=== PATIENT | female | born 1965 | race Caucasian/White ===

== ENCOUNTER 2021-02-28 08:20 | Outpatient (REF) | payer BC, SELFPAY ==
[2021-02-28 13:58] LABS: H Pylori Breath Test Negative (Negative)
== END 2021-02-28 08:21 | disposition home or self-care (01) ==
LOC: HO.LNP 08:20
PROVIDERS: PCP Family Medicine; Visit Provider Physician Assistant
DX: Z01.818 Encounter for other preprocedural examination (principal); K43.9 Ventral hernia without obstruction or gangrene; E66.01 Morbid (severe) obesity due to excess calories; E03.9 Hypothyroidism, unspecified; E11.9 Type 2 diabetes mellitus without complications; Z98.84 Bariatric surgery status
CPT/HCPCS: 83013

== ENCOUNTER → 2021-03-25 08:14 | Outpatient (BNVA) | payer BC, SELFPAY | PROVIDERS: PCP Family Medicine; Visit Provider Physician Assistant ==

== ENCOUNTER 2021-03-31 08:05 | Outpatient (REF) | payer BC, SELFPAY ==
--- NOTE | ~2021-03-31 | FL_ITS ---
EXAMINATION: XR GI SERIES CLINICAL INFORMATION: Obesity. Preop evaluation. COMPARISON: None. TECHNIQUE: Routine upper GI air-contrast study was performed. FINDINGS: Following oral administration of thick barium and effervescent granules in upright view, there is normal propagation of bolus from the oral cavity through the pharynx and esophagus and into the stomach without any evidence of obstruction, narrowing or stricture. On placing patient supine and prone lying, the course, caliber and peristalsis of the stomach are normal. There is a gastric lap-band visualized in the fundus of the stomach in good position. The GE junction is widely patent. The stomach is normal caliber with a small paraesophageal hernia suspected. No gastroesophageal reflux. The mucosal pattern of the esophagus, stomach and the duodenum is normal. On subsequent and delayed images during fluoroscopy, it was felt that the gastric band was ruptured and shifted to the midline. Scrutinizing the images more carefully and more so on the initial images, the band is in the correct position in the fundus of the stomach with a wide gastr0-esophageal lumen. FLUOROSCOPY TIME: 3.0 minutes DOSE AREA PRODUCT: 51.282 uGy-m2 (microgray-meter squared) FL/FL upper GI series IMPRESSION: The gastric band is in correct position in the fundus of the stomach; however, the lumen is widely open. There is a paraesophageal small hiatal hernia.
--- NOTE | ~2021-03-31 | XR_ITS ---
EXAMINATION: XR CHEST CLINICAL INFORMATION: Bariatric surgery status COMPARISON: None TECHNIQUE: 2 views of the chest were obtained. FINDINGS: No significant abnormality is noted involving the heart, lungs, mediastinum, bony thorax or soft tissues. XR/XR chest 2V IMPRESSION: Unremarkable chest examination.
--- NOTE | ~2021-03-31 | US_ITS ---
EXAMINATION: US COMPLETE ABDOMEN WITH LIVER ELASTOGRAPHY CLINICAL INFORMATION: Bariatric surgery status. Obesity. COMPARISON: None. TECHNIQUE: Real-time imaging of the abdominal viscera. Noninvasive ultrasound liver fibrosis assessment is performed using Angelito ElastPQ point quantification shear wave elastography (2D-SWE) with a C5-2 MHz transducer. Multiple elastography samples are obtained. FINDINGS: PANCREAS: Normal. ABDOMINAL AORTA: The proximal, middle, and distal aortic segments are normal in caliber. INFERIOR VENA CAVA: Visualized portions are normal. LIVER: Liver contour is normal. Liver echotexture is slightly increased. The liver is slightly enlarged. No focal lesion or intrahepatic biliary duct dilatation. There is a linear echogenic density adjacent to the left lobe of the liver likely representing patient's gastric lap band. The right lobe measures 21 cm in length. The left lobe measures 11 cm in length. Portal flow is normal/hepatopedal Shear wave liver elastography median stiffness is 1.6 m/s (reference: normal median stiffness is 1.3 m/s or less). IQR/median stiffness to assess sampling precision is 0.24 (reference: good quality data set is IQR/median stiffness of 0.15 or less). GALLBLADDER: Gallbladder is normal in size. There are several small echogenic densities adjacent to the gallbladder wall. These do not move or shadow. The largest measures 3 x 8 mm. This may represent small gallstones, echogenic bile or less likely a polyp. The gallbladder wall does not appear thickened. COMMON BILE DUCT: Normal in caliber measuring 0.2 cm in diameter. RIGHT KIDNEY: Normal. No hydronephrosis. No renal calculi or focal parenchymal lesions. The kidney measures 11.5 cm in maximum dimension. LEFT KIDNEY: Normal. No hydronephrosis. No renal calculi or focal parenchymal lesions. The kidney measures 11 cm in maximum dimension. SPLEEN: Normal. The spleen measures 10.8 cm in maximum dimension. FREE FLUID: None. US/US abdomen comp w elastography IMPRESSION: 1. Impression: Enlarged echogenic liver probably representing fatty infiltration. Small echogenic densities adjacent to the gallbladder wall questionable for sludge or small adherent stones and less likely gallbladder wall polyp(s). 2. Liver elastography: Limited due to sampling error. REFERENCE: Society of Radiologists in Ultrasound Liver Stiffness Thresholds (2020): LIVER STIFFNESS THRESHOLDS: *Liver Stiffness equal or less than 1.3 m/s: High probability of being normal. *Liver Stiffness less than 1.7 m/s: In the absence of other known clinical signs, rules out compensated advanced chronic liver disease. *Liver Stiffness 1.7-2.1 m/s: Suggestive of compensated advanced chronic liver disease but need further test for confirmation. *Liver Stiffness over 2.1 m/s: Rules in compensated advanced chronic liver disease. *Liver Stiffness over 2.4 m/s: Suggestive of clinically significant portal hypertension. QUALITY OF DATA SET: *IQR/Median value equal or less than 0.15 implies a quality data set. *IQR/Median value over 0.15 implies a poor quality data set. SIGNIFICANT CHANGE FROM PRIOR EXAM: Significant change if liver stiffness measurement is 10% or greater from prior exam. OTHER CONSIDERATIONS: The stage of liver fibrosis may be overestimated in the setting of acute hepatitis, liver inflammation, elevated liver function tests, hepatic vascular congestion, obstructive cholestasis, non-fasting state, and infiltrative diseases such as amyloidosis and lymphoma. In some patients with NAFLD, the liver stiffness thresholds for compensated advanced chronic liver disease may be lower. In causes other than viral hepatitis and NAFLD, liver stiffness thresholds are not well established.
== END 2021-03-31 08:06 | disposition home or self-care (01) ==
LOC: HO.US 08:05
PROVIDERS: PCP Family Medicine; Visit Provider Physician Assistant
DX: Z01.818 Encounter for other preprocedural examination (principal); E66.01 Morbid (severe) obesity due to excess calories; E11.9 Type 2 diabetes mellitus without complications; Z98.84 Bariatric surgery status
CPT/HCPCS: 71046; 74240; 76705; 76981

== ENCOUNTER → 2021-04-08 08:24 | Outpatient (BNVA) | payer BC, SELFPAY | PROVIDERS: PCP Family Medicine; Visit Provider Dietitian, Registered | DX: E66.9 Obesity, unspecified (principal); Z68.43 Body mass index [BMI] 50.0-59.9, adult | CPT/HCPCS: 97802 ==

== ENCOUNTER → 2021-04-22 15:45 | Outpatient (BNVA) | payer BC, SELFPAY | PROVIDERS: PCP Family Medicine; Visit Provider Physician Assistant ==

== ENCOUNTER → 2021-05-27 15:20 | Outpatient (REF) | payer BC, SELFPAY ==
--- NOTE | 2021-05-27 15:28 | ECG_ITS ---
Test Reason : PREOP, OBESITY Blood Pressure : / mmHG Vent. Rate : 092 BPM Atrial Rate : 092 BPM P-R Int : 144 ms QRS Dur : 082 ms QT Int : 362 ms P-R-T Axes : 063 -03 049 degrees QTc Int : 447 ms Normal sinus rhythm Normal ECG No previous ECGs available Referred By: Shaunna Slade Electronically Signed By:MIKE SHIPMAN MD
== END ==
LOC: HO.CARD 15:20
PROVIDERS: PCP Family Medicine; Visit Provider Physician Assistant
DX: Z01.818 Encounter for other preprocedural examination (principal); E66.01 Morbid (severe) obesity due to excess calories; K43.9 Ventral hernia without obstruction or gangrene; E11.9 Type 2 diabetes mellitus without complications; Z98.84 Bariatric surgery status
CPT/HCPCS: 93005

== ENCOUNTER → 2021-06-16 15:57 | Outpatient (BNVA) | payer BC, SELFPAY | PROVIDERS: PCP Family Medicine; Visit Provider Physician Assistant | DX: Z13.89 Encounter for screening for other disorder (principal) ==

== ENCOUNTER → 2021-07-15 15:00 | Outpatient (BNVA) | payer BC, SELFPAY | PROVIDERS: PCP Family Medicine; Visit Provider Physician Assistant | DX: E66.01 Morbid (severe) obesity due to excess calories (principal) ==

== ENCOUNTER 2021-08-11 08:03 | Day surgery (SDC) | payer BC, SELFPAY ==
--- NOTE | 2021-08-06 09:56 | MHC.SHP ---
Pre-Procedural Eval Section A Date of Service: 08/06/21 The patient is an INPATIENT: No The History & Physical has been completed within 30 days and I have reviewed it.: Yes Section B Chief Complaint: bariactric status Relevant Family History (Specify if Yes): No Relevant Social History: None Present Medications: None Medical History: No relevant PMH History of Previous Operations: Relevant previous surgery/procedure and date(s) (Lap gastric band) Allergies: Allergies Allergy/AdvReac Type Severity Reaction Status Date / Time Sulfa (Sulfonamide Allergy Severe HIVE Verified 08/03/21 10:17 Antibiotics) Penicillins Allergy Mild HIVES Verified 08/03/21 10:17 Review of Systems Sugical H&P ROS: Negative: Constitution, Cardiovascular, Respiratory, Neurological, Psychiatric, Hem-Onc, Allergic/Immunologic, Gastrointestinal, Genitourinary, Musculoskeletal, Integumentary, Endocrine and Eyes/Ears/Nose/Throat Exam Surgical H&P Exam: Normal: HEENT, Normal: Heart, Normal: Lungs, Normal: Extremities, Normal: Abdomen, Normal: Skin and Normal: Neurological Plan Diagnosis/Plan: Unchanged (EGD to assess lap band erosion and esophagitis. Risks of bleeding and perforation were discussed) I have reviewed the history and physical and performed a pertinent physical examination on my patient. No changes have occurred unless specified.
--- NOTE | 2021-08-10 10:14 | P.CONAN_ITS ---
Documented by User: Anamaria Dickson NP 08/10/21 10:15 HPI - Anesthesia Eval Consult details Narrative: 56yo F for Upper Endoscopy PMF Active Problems Active Problems: All Active Problems (Updated 08/10/21 @ 09:52 by Kimberlee Laureano RN) Morbid obesity (Acute) Pre-op evaluation (Acute) Hypothyroid (Acute) History of adjustable gastric banding (Acute) Diabetes mellitus (Acute) Ventral hernia (Acute) Sleep apnea with use of continuous positive airway pressure (CPAP) (Acute) Past Medical History Medical History Diabetes mellitus Hypothyroid Morbid obesity Sleep apnea with use of continuous positive airway pressure (CPAP) Ventral hernia Family History Family History Mother Diabetes Father Dementia Sister No problems noted. Son No problems noted. Son Heart problem History of asthma Surgical History Surgical History History of adjustable gastric banding Hx of cervical polypectomy Hx of colonoscopy Hx of laparoscopic gastric banding Social History Social History Alcohol intake: current Alcohol intake frequency: holidays/special occasions only Patient Tobacco Use Status: Never used Tobacco Meds Allergies Allergy/AdvReac Type Severity Reaction Status Date / Time Sulfa (Sulfonamide Allergy Severe HIVE Verified 08/03/21 10:17 Antibiotics) Penicillins Allergy Mild HIVES Verified 08/03/21 10:17 Home Medications Medication Instructions Recorded Confirmed Last Taken Type bupropion HCl 150 mg 24 hr tablet, 150 mg PO QAM 02/28/21 08/03/21 Unknown History extended release bupropion HCl 300 mg 24 hr tablet, 300 mg PO DAILY 02/28/21 08/03/21 Unknown History extended release buspirone 30 mg tablet 30 mg PO BID 02/28/21 08/03/21 Unknown History desvenlafaxine succinate 100 mg 100 mg PO DAILY 02/28/21 08/03/21 Unknown History tablet,extended release 24 hr levothyroxine 50 mcg tablet 50 mcg PO QAM 02/28/21 08/03/21 Unknown History (Euthyrox) ibuprofen 200 mg tablet (Motrin IB) 200 mg PO Q6H PRN 08/03/21 08/03/21 Unknown History Exam Exam Date and Time: August 10, 2021 1014 Assessment and Plan Assessment Anesthesia Assessment: Chart Reviewed Documented by User: Zane Hylton MD 08/11/21 16:58 [facility] Past Medical History Medical History Diabetes mellitus Hypothyroid Morbid obesity Sleep apnea with use of continuous positive airway pressure (CPAP) Ventral hernia Family History Family History Mother Diabetes Father Dementia Sister No problems noted. Son No problems noted. Son Heart problem History of asthma Family history of problems with anesthesia: No Surgical History Surgical History History of adjustable gastric banding Hx of cervical polypectomy Hx of colonoscopy Hx of laparoscopic gastric banding History of Problems with Anesthesia: No Social History Social History Alcohol intake: current Alcohol intake frequency: holidays/special occasions only Patient Tobacco Use Status: Never used Tobacco Meds Allergies Allergy/AdvReac Type Severity Reaction Status Date / Time Sulfa (Sulfonamide Allergy Severe HIVE Verified 08/03/21 10:17 Antibiotics) Penicillins Allergy Mild HIVES Verified 08/03/21 10:17 Home Medications Medication Instructions Recorded Confirmed Last Taken Type bupropion HCl 150 mg 24 hr tablet, 150 mg PO QAM 02/28/21 08/03/21 Unknown History extended release bupropion HCl 300 mg 24 hr tablet, 300 mg PO DAILY 02/28/21 08/03/21 Unknown History extended release buspirone 30 mg tablet 30 mg PO BID 02/28/21 08/03/21 Unknown History desvenlafaxine succinate 100 mg 100 mg PO DAILY 02/28/21 08/03/21 Unknown History tablet,extended release 24 hr levothyroxine 50 mcg tablet 50 mcg PO QAM 02/28/21 08/03/21 Unknown History (Euthyrox) ibuprofen 200 mg tablet (Motrin IB) 200 mg PO Q6H PRN 08/03/21 08/03/21 Unknown History Exam Airway Mallampati Class: IV TM Dist: >3cm Neck ROM: Full Denture: Upper Loose/Missing/Broken Teeth: Yes (Poor dentition ) Heart: S1,S2 Lungs: b/l breath sounds Assessment and Plan Final Anesthetic Review Family History of Problems with Anesthesia: No History of Problems with Anesthesia: No NPO: Yes ASA Class: III Final Preanesthetic Review: Meds/Allgs Chart Reviewed, Consent Obtained/Reviewed and Anes Risks/Benef Reviewed Patient Risk: Intermediate Procedure Risk: Intermediate Anesthetic Plan Anesthetic Plan: MAC: Disposition: Standard PACU
[2021-08-11 08:28] VITALS: BMI 50.5
[2021-08-11 08:38] VITALS: BP 121/82; PULSE 77; RESP 18; TEMP 36.6; O2SAT 99
[2021-08-11 08:48] LABS: Glucose, Whole Blood 116 mg/dL (60-115)
[2021-08-11] MEDS: Lactated Ringers 1,000 ML 100 ML IVCONT (09:01)
--- NOTE | 2021-08-11 10:16 | P.BOP_ITS ---
Brief Operative Note Date of Service: 08/11/21 Pre-op diagnosis: Gastric band, GERD Post-op diagnosis: same (normal) Procedure: PREOPERATIVE DIAGNOSIS: GERD, s/p lap band POSTOPERATIVE DIAGNOSIS: ?Same as above. No band erosion PROCEDURE: [id number] with biopsies Surgeon: ?Cesar Meraz M.D.. Ph.D. Metal Cnc Operator: None ? Anesthesia: IV sedation Estimated blood loss: ?Minimal FINDINGS AND PROCEDURE: ? OPERATIVE INDICATIONS: ?The patient is a 56 year old female known to me who underwent a laparoscopic gastric band elsewhere by Dr. Dodd. The patient had poor weight loss so far and has been complaining of GERD. Based on this information I recommended an upper endoscopy to evaluate the patient's symptoms. Risks and complications of the surgery were discussed with the patient in ad camacho particularly the possibility of perforation or bleeding that may require surgical intervention. The patient understood the risks and was in agreement with the plan. ? PROCEDURE: After informed consent was obtained by the patient, the patient was ?transferred to the Operating Room and was placed in the supine position.? After successful induction of IV sedation, a mouth block was inserted and the patient was placed in the left lateral decubitus position. An upper endoscopy was performed next, the oropharynx and esophagus appeared within the normal limits. There was no hiatal hernia. The z-line was smooth.? The stomach was entered and it appeared to be of normal size. There was no band erosion, ?gastritis and no ulcer. Two biopsies were obtained from distal esophagus and GE junction and one biopsy from the proximal fundus and antrum. No significant bleeding was noted from any of the biopsy sites. The scope was advanced into the duodenum which appeared to be normal as well. Retroflexion was performed and again no band erosion was seen. At that point the duodenum and the stomach were decompressed and the scope was withdrawn from the patient's mouth. The patient was awaken and was transferred in stable condition to the Recovery Room for further care. I was present and performed all steps of the procedure. There were no residents to assist with this case. Cesar Meraz M.D., Ph.D. Surgeon: Rocco Meraz MD Anesthesia: MAC Was an Metal Cnc Operator used for this Procedure?: No Estimated blood loss (mL): 0 IV fluids (mL): 400 Urine output (mL): 0 (No Lopez to record) Pathology: other (1) GE junction x2 2) Distal esophagus x2 3) Proximal stomach x1 4) Distal antrum x1) Condition: stable Disposition: PACU
[2021-08-11 10:45] VITALS: BP 99/54; PULSE 83; RESP 16; TEMP 36.1; O2SAT 100
[2021-08-11 11:00] VITALS: BP 97/42; PULSE 72; RESP 16; O2SAT 98
[2021-08-11 11:15] VITALS: BP 106/58; PULSE 74; RESP 18; TEMP 36.1; O2SAT 100
== END 2021-08-11 11:45 | disposition home or self-care (01) ==
PROVIDERS: PCP Family Medicine; Visit Provider Surgery
PROC: 0DJ08ZZ Inspection of Upper Intestinal Tract, Via Natural or Artificial Opening Endoscopic (ICD-10-PCS; CPT 43235; principal; 2021-08-11 09:30)
DX: K21.9 Gastro-esophageal reflux disease without esophagitis (principal); Z98.84 Bariatric surgery status; K43.9 Ventral hernia without obstruction or gangrene; G47.30 Sleep apnea, unspecified; E66.01 Morbid (severe) obesity due to excess calories; Z68.43 Body mass index [BMI] 50.0-59.9, adult; E03.9 Hypothyroidism, unspecified; E11.9 Type 2 diabetes mellitus without complications; Z79.84 Long term (current) use of oral hypoglycemic drugs; Z79.899 Other long term (current) drug therapy; Z99.89 Dependence on other enabling machines and devices; Z88.0 Allergy status to penicillin; Z88.2 Allergy status to sulfonamides
CPT/HCPCS: 43239; 82947; 88305; 88342; J0131; J2250

== ENCOUNTER 2021-11-03 06:04 | Inpatient (IN) | payer BC, SELFPAY ==
[2021-10-26 07:42] LABS: MANUAL DIFF FLAG NO
[2021-10-26 07:49] LABS: Basophils Absolute Auto 0.1 X10*3/uL (0.0-0.2); Basophils Percent Auto 0.8 % (0-2); Eosinophils Absolute Auto 0.2 X10*3/uL (0.0-0.4); Eosinophils Percent Auto 2.3 % (0-4); Hematocrit 43.4 % (37.0-47.0); Hemoglobin 14.4 g/dl (12.0-16.0); Imm Gran Abs Auto 0.03 X10*3/uL (0.00-0.03); Imm Gran Pct Auto 0.4 % (0.0-0.4); Lymphocytes Absolute Auto 2.1 X10*3/uL (1.2-4.9); Lymphocytes Percent Auto 30.3 % (20-40); Mean Corpuscular HGB Conc 33.2 g/dl (31.0-35.0); Mean Corpuscular Hemoglobin 29.9 pg (27.0-33.0); Mean Platelet Volume 11.4 fL (9.4-12.3); Monocytes Absolute Auto 0.5 X10*3/uL (0.1-1.2); Monocytes Percent Auto 7.4 % (2-11); Neutrophils Absolute Auto 4.2 x10*3/uL (2.0-8.3); Neutrophils Percent Auto 58.8 % (45-73); Platelet Count 202 X10*3/uL (160-400); Red Blood Count 4.82 X10*6/uL (4.20-5.50); Red Cell Distribution Width 13.7 % (11.0-16.0); White Blood Count 7.1 X10*3/uL (4.8-10.8)
[2021-10-26 07:57] LABS: Estimated Average Glucose 123 mg/dL; Hemoglobin A1c % 5.9 %; INTERNATIONAL NORM RATIO 1.1 (0.9-1.1); Prothrombin Time 12.8 SEC (10.0-13.1)
[2021-10-26 07:59] LABS: Partial Thromboplastin Time 33.7 SEC (26.0-36.4)
[2021-10-26 08:21] LABS: Alanine Aminotransferase 18 U/L (0-31); Alkaline Phosphatase 82 U/L (39-117); Anion Gap 17 (12-20); Aspartate Amino Transferase 17 U/L (5-31); Bilirubin Total 0.4 mg/dL (0.0-1.0); Blood Urea Nitrogen 18 mg/dL (9-16); C Reactive Protein 2.02 mg/dL (< or = 0.50); Carbon Dioxide 26 mmol/L (22-29); Chloride 103 mmol/L (96-108); Cholesterol 206 mg/dL; Estimated Glomerular Filt Rate > 60; Glucose Random 157 mg/dL (60-115); HDL Cholesterol 45 mg/dL; LDL Cholesterol Calculated 139 mg/dl; Potassium 4.3 mmol/L (3.3-5.1); Sodium 142 mmol/L (135-145); Total Protein 6.9 g/dL (6.5-8.0); Triglycerides 111 mg/dL
[2021-10-26 08:36] LABS: Insulin 11 uU/mL (2-29); TSH reflex Free T4 1.44 uIU/mL (0.32-4.0)
--- NOTE | 2021-10-28 23:15 | MHC.SHP ---
Pre-Procedural Eval Section A Date of Service: 10/28/21 The patient is an INPATIENT: Yes The History & Physical has been completed within 30 days and I have reviewed it.: Yes Section B Chief Complaint: obesity Relevant Family History (Specify if Yes): No Relevant Social History: None Present Medications: None Medical History: No relevant PMH History of Previous Operations: Relevant previous surgery/procedure and date(s) (Lap band) Allergies: Allergies Allergy/AdvReac Type Severity Reaction Status Date / Time Sulfa (Sulfonamide Allergy Severe HIVE Verified 08/31/21 15:01 Antibiotics) Penicillins Allergy Mild HIVES Verified 08/31/21 15:01 Review of Systems Sugical H&P ROS: Negative: Constitution, Cardiovascular, Respiratory, Neurological, Psychiatric, Hem-Onc, Allergic/Immunologic, Gastrointestinal, Genitourinary, Musculoskeletal, Integumentary, Endocrine and Eyes/Ears/Nose/Throat Exam Surgical H&P Exam: Normal: HEENT, Normal: Heart, Normal: Lungs, Normal: Extremities, Normal: Abdomen, Normal: Skin and Normal: Neurological Plan Diagnosis/Plan: Unchanged I have reviewed the history and physical and performed a pertinent physical examination on my patient. No changes have occurred unless specified.
[2021-11-01 15:34] VITALS: BMI 48.2
--- NOTE | 2021-11-02 09:49 | HO.ANESPROP2 ---
Documented by User: Anamaria Dickson NP 11/02/21 09:51 HPI - Anesthesia Eval Consult details Narrative: 56yo F for Lap Band Removal Laparosopic, Gastrectomy Sleeve conversion,possible diaphragmatic hernia,possible ventral hernia,possible open s/p EGD 07/2021 with TIVA PMFSH Active Problems Active Problems: All Active Problems (Updated 11/01/21 @ 15:34 by Lisa Barnett RN) Morbid obesity (Acute) Pre-op evaluation (Acute) Hypothyroid (Acute) History of adjustable gastric banding (Acute) Diabetes mellitus (Acute) Ventral hernia (Acute) Sleep apnea with use of continuous positive airway pressure (CPAP) (Acute) Past Medical History Medical History Anxiety and depression Diabetes mellitus Hypothyroid Knee pain, bilateral Morbid obesity Sleep apnea with use of continuous positive airway pressure (CPAP) Ventral hernia Family History Family History Mother Diabetes Father Dementia Sister No problems noted. Son No problems noted. Son Heart problem History of asthma Family history of problems with anesthesia: No Surgical History Surgical History History of adjustable gastric banding History of esophagogastroduodenoscopy (EGD) Hx of bladder endoscopy Hx of cervical polypectomy Hx of colonoscopy History of Problems with Anesthesia: No Social History Social History Are you a primary insurance healthcare representative to a significant other at home: No Do you presently have visiting nurse or other home services: No Alcohol intake: current Alcohol intake frequency: holidays/special occasions only Patient Tobacco Use Status: Never used Tobacco Use of substances other than those prescribed or required for medical reasons: No Have you been hit, kicked, punched, or otherwise hurt by someone within the past year? If so, by whom?: No Are you DNR?: No Advance Directives: No Advance Directives Information Provided: Yes Advance Directives on File: No Recently lost weight without trying: No Meds Allergies Allergy/AdvReac Type Severity Reaction Status Date / Time Penicillins Allergy Severe HIVES Verified 11/03/21 06:36 Sulfa (Sulfonamide Allergy Severe Hives Verified 11/03/21 06:36 Antibiotics) Home Medications Medication Instructions Recorded Confirmed Last Taken Type bupropion HCl 150 mg 24 hr tablet, 450 mg PO QAM 02/28/21 11/01/21 Unknown History extended release buspirone 30 mg tablet 30 mg PO BID 02/28/21 11/01/21 Unknown History desvenlafaxine succinate 100 mg 100 mg PO DAILY 02/28/21 11/01/21 Unknown History tablet,extended release 24 hr levothyroxine 50 mcg tablet 50 mcg PO QAM 02/28/21 11/01/21 Unknown History (Euthyrox) trazodone 50 mg tablet 25 mg PO BEDTIME PRN Insomnia 08/31/21 11/01/21 Unknown History Exam Exam Date and Time: November 02, 2021 0950 Height,Weight and Vital Signs: Height 4 ft 11 in Weight 108.409 kg Pertinent Lab Results Pertinent Lab Results: Laboratory Tests 10/26/21 10/26/21 10/26/21 07:35 07:41 07:41 WBC 7.1 RBC 4.82 Hgb 14.4 Hct 43.4 MCV 90.0 MCH 29.9 MCHC 33.2 RDW 13.7 Plt Count 202 MPV 11.4 Immature Gran % (Auto) 0.4 Neut % (Auto) 58.8 Lymph % (Auto) 30.3 [place] % (Auto) 7.4 Eos % (Auto) 2.3 Baso % (Auto) 0.8 Lymph # (Auto) 2.1 [place] # (Auto) 0.5 Eos # (Auto) 0.2 Baso # (Auto) 0.1 Abs Immat Gran (auto) 0.03 Absolute Neuts (auto) 4.2 Absolute Nucleated RBC 0.000 Nucleated RBC % (auto) 0.0 PT 12.8 INR 1.1 APTT 33.7 Sodium Potassium Chloride Carbon Dioxide Anion Gap BUN Creatinine Estim Creat Clear Calc Estimated GFR Random Glucose Estimat Average Glucose Hemoglobin A1c % Insulin Level Calcium Total Bilirubin AST ALT Alkaline Phosphatase C-Reactive Protein Total Protein Albumin Triglycerides Cholesterol LDL Cholesterol, Calc HDL Cholesterol TSH Blood Type O Positive Antibody Screen NEGATIVE 10/26/21 10/26/21 07:41 07:41 WBC RBC Hgb Hct MCV MCH MCHC RDW Plt Count MPV Immature Gran % (Auto) Neut % (Auto) Lymph % (Auto) [place] % (Auto) Eos % (Auto) Baso % (Auto) Lymph # (Auto) [place] # (Auto) Eos # (Auto) Baso # (Auto) Abs Immat Gran (auto) Absolute Neuts (auto) Absolute Nucleated RBC Nucleated RBC % (auto) PT INR APTT Sodium 142 Potassium 4.3 Chloride 103 Carbon Dioxide 26 Anion Gap 17 BUN 18 H Creatinine 0.78 Estim Creat Clear Calc TNP Estimated GFR > 60 Random Glucose 157 H Estimat Average Glucose 123 Hemoglobin A1c % 5.9 Insulin Level 11 Calcium 9.0 Total Bilirubin 0.4 AST 17 ALT 18 Alkaline Phosphatase 82 C-Reactive Protein 2.02 H Total Protein 6.9 Albumin 4.0 Triglycerides 111 Cholesterol 206 LDL Cholesterol, Calc 139 HDL Cholesterol 45 TSH 1.44 Blood Type Antibody Screen Narrative Narrative: EKG 05/2021 Vent. Rate : 092 BPM ? ? Atrial Rate : 092 BPM ?? P-R Int : 144 ms? QRS Dur : 082 ms ? ? QT Int : 362 ms ? ? ? P-R-T Axes : 063 -03 049 degrees ?? QTc Int : 447 ms ? Normal sinus rhythm Normal ECG No previous ECGs available Assessment and Plan Assessment Anesthesia Assessment: Chart Reviewed Final Anesthetic Review Family History of Problems with Anesthesia: No History of Problems with Anesthesia: No Documented by User: Castillo Mitchell MD 11/03/21 08:04 [facility] Past Medical History Medical History Anxiety and depression Diabetes mellitus Hypothyroid Knee pain, bilateral Morbid obesity Sleep apnea with use of continuous positive airway pressure (CPAP) Ventral hernia Family History Family History Mother Diabetes Father Dementia Sister No problems noted. Son No problems noted. Son Heart problem History of asthma Surgical History Surgical History History of adjustable gastric banding History of esophagogastroduodenoscopy (EGD) Hx of bladder endoscopy Hx of cervical polypectomy Hx of colonoscopy Social History Social History Are you a primary insurance healthcare representative to a significant other at home: No Do you presently have visiting nurse or other home services: No Alcohol intake: current Alcohol intake frequency: holidays/special occasions only Patient Tobacco Use Status: Never used Tobacco Use of substances other than those prescribed or required for medical reasons: No Have you been hit, kicked, punched, or otherwise hurt by someone within the past year? If so, by whom?: No Are you DNR?: No Advance Directives: No Advance Directives Information Provided: Yes Advance Directives on File: No Recently lost weight without trying: No Meds Allergies Allergy/AdvReac Type Severity Reaction Status Date / Time Penicillins Allergy Severe HIVES Verified 11/03/21 06:36 Sulfa (Sulfonamide Allergy Severe Hives Verified 11/03/21 06:36 Antibiotics) Home Medications Medication Instructions Recorded Confirmed Last Taken Type bupropion HCl 150 mg 24 hr tablet, 450 mg PO QAM 02/28/21 11/01/21 Unknown History extended release buspirone 30 mg tablet 30 mg PO BID 02/28/21 11/01/21 Unknown History desvenlafaxine succinate 100 mg 100 mg PO DAILY 02/28/21 11/01/21 Unknown History tablet,extended release 24 hr levothyroxine 50 mcg tablet 50 mcg PO QAM 02/28/21 11/01/21 Unknown History (Euthyrox) trazodone 50 mg tablet 25 mg PO BEDTIME PRN Insomnia 08/31/21 11/01/21 Unknown History Exam Airway Mallampati Class: II TM Dist: >3cm Neck ROM: Full Denture: Upper Loose/Missing/Broken Teeth: Yes (upper denture, lower back teeth both sides all missing, none loose as per patient) Heart: [id number] Lungs: cta b/l Assessment and Plan Assessment Anesthesia Assessment: Anesthesia Plan Discussed Final Anesthetic Review NPO: Yes ASA Class: III Final Preanesthetic Review: No Changes in Pt Med Stat, Meds/Allgs Chart Reviewed, Consent Obtained/Reviewed and Anes Risks/Benef Reviewed Patient Risk: Intermediate Procedure Risk: Intermediate Assessment/Block/Sedation in SS: Assess/Block/Sedation-SS Anesthetic Plan Anesthetic Plan: GA and Agree w/ Assess. and Plan Disposition: Standard PACU
[2021-11-02 15:14] LABS: COVID-19 Test Negative (Negative)
[2021-11-03] VITALS (13 sets, daily range): BP systolic 113–148; BP diastolic 59–79; PULSE 70–93; RESP 16–22; TEMP 36–37; O2SAT 93–98
[2021-11-03 06:27] LABS: Glucose, Whole Blood 148 mg/dL (60-115)
[2021-11-03] MEDS: Lactated Ringers 1,000 ML 999 ML IV (06:32)
[2021-11-03] MEDS: Lactated Ringers 1,000 ML 100 ML IVCONT (06:32)
--- NOTE | 2021-11-03 07:47 | PM.OP ---
Brief Operative Note Date of Service: 11/03/21 Pre-op diagnosis: Morbid obesity with comorbidities (see below) Post-op diagnosis: same Procedure: NITIAL PATIENT BMI ON PRESENTATION AT OUR OFFICE: 54.8 kg/m2 LAST BMI BEFORE SURGERY: 49.3 kg/m2 COMORBIDITIES: sleep apnea on CPAP, depression, anxiety, non-insulin dependent diabetes, hypothyroidism, DJD, liver fibrosis, cholelithiasis ?The patient presented to the Weight Management Program with significant obesity that was negatively impacting the patient's comorbidities as listed above.? The program is a phased program with a special focus on preoperative medical weight management to promote substantial weight loss and prepare the patients for the second phase of the program: bariatric surgery. The patient participated in an intensive weekly lifestyle ?intervention and exercise program during which the patient ?has lost between the initial office visit and the last preoperative visit 26.8lbs, or 9.88% of initial actual body weight. It was deemed appropriate for the patient to now have bariatric surgery. In light of the current Covid-19 pandemic and the well documented strong association of obesity and increased risk of worse outcomes if infected with Covid-19 (REFERENCES:https://pubmed.ncbi.nlm.nih.gov/01228454/,?https://pubmed.ncbi.nlm.nih.gov/13199913/), any delay in undergoing bariatric surgery may lead to the patient's worsening health condition and increased?risk of more severe Covid-19 disease if infected. In addition a recent?study from [facility] published in [facility] [facility] on 02/14/2021 ([email or web address]) found that, among patients with obesity, substantial weight loss achieved with surgery was associated with improved outcomes of COVID-19 infection. The findings suggest that obesity can be a modifiable risk factor for the severity of COVID-19 infection. In addition, the patient met the BMI-criteria for bariatric surgery based on the BMI on initial presentation. The patient should not be penalized for achieving such weight loss because ?it is not sustainable long-term without surgical intervention and it was achieved in preparation for bariatric surgery ?under my direction and based on my published research ([email or web address]).[email or web address] and?[email or web address].soard.org/article/[email or web address])06121-X/pdf) ?that a 10% preoperative weight loss improves long-term weight loss after surgery and reduces perioperative complications.? Insurance carriers such as [facility] have endorsed my recommendations ?and have included in their policies criteria to include a 10% preoperative weight loss requirement. PROCEDURE: Esophago-gastroscopy, laparoscopic capsulectomy, extensive laparoscopic lysis of adhesions, laparoscopic gastric band removal and accessories, laparoscopic sleeve gastrectomy and laparoscopic gastropexy INDICATIONS: This is a 56 year-old female with present BMI of 49.3 kg/m2 and associated comorbid conditions as described previously. After appropriate workup and a 26.8 lbs preoperative weight loss was performed, the patient was electively scheduled for laparoscopic, possibly open revision of gastric band to sleeve gastrectomy. The risks and complications of the procedure were discussed with the patient in advance, particularly the possibility of ; pulmonary embolism; staple line leak; bleeding; GERD; cardiac, pulmonary, or renal complications; as well as long-term problems such as insufficient weight loss, vitamin deficiency, strictures, or ulcers. The patient understood all the risks, and was in agreement to proceed with surgery. DESCRIPTION OF PROCEDURE: After informed consent was obtained from the patient, the patient was given preoperative antibiotics, and was transferred to the operating room. After successful induction of general anesthesia, a Lopez catheter and pneumatic compressive devices were placed on both lower extremities. An upper endoscopy was performed next. The oropharynx and esophagus appeared to be within normal limits. There was a small diaphragmatic hernia that was not reported at the preoperative upper GI. The stomach was entered. Then after all fluid and air were suctioned and the stomach was fully decompressed, the scope was withdrawn and secured in the mid esophagus. The patient was then prepped and draped in the usual sterile manner, and abdominal access was established at the right upper quadrant with the Pawan technique. A 12 mm blunt port was inserted, and the abdomen was insufflated with CO2 to a pressure of 15 mmHg. Under direct visualization, additional ports were placed, specifically two 5 mm Versi-step ports to the left upper quadrant, and a 5 mm Versi-Step port to the right upper quadrant. 1% lidocaine plan was used to infiltrate all port sites as well as all fascia defects. Using the EndoClose suture passer device, I placed a #1 Polysorb tie across the falciform ligament in order to retract it up against the abdominal wall and prevent injury of the ligament with our instruments during the procedure. Following that, the patient was placed in a steep reverse Trendelenburg position. An additional 5 mm port was placed to the right flank for the Mediflex retractor that was used to retract the left lobe of the liver. There were adhesions in the abdomen from previous lap band involving the stomach and the undersurface of the left lobe of the liver. Those were lysed completely with the ultrasonic device. The patient has a Lap gastric band. It was identified and using the Thunderbeat, the capsule was opened and the band was freed from surrounding tissues. Once it was adequately mobile, it was cut and was removed from the Pawan port along with the intra-abdominal portion of the tubing system. The gastro-gastric wrap was then taken down with the Thunderbeat all the way to the angle of His. The three previous Ethibond sutures were identified and were divided. Careful dissection was required to unwrap the stomach completely and restore its normal position. This required extensive and tedious dissection. To prevent stricture at the previous band site, the fibrinous capsule was freed anteriorly from the GE junction and it was divided completely. Then a portion of the capsule was completely resected and removed using the Thunderbeat. The gastro-esophageal fat pad was opened with the ultrasonic device (Thunderbeat, Olympus) and the anterior esophagus and hiatus were exposed. The fat pad was removed. The angle of His was opened with the ultrasonic device the fundus of the stomach from any diaphragmatic and splenic attachments. I then opened the gastrocolic ligament between the transverse colon and the greater curvature of the stomach with the ultrasonic device to enter the lesser sac and facilitate the ligation of the short gastric vessels. I started at a mid-point along the greater curvature and using the Thunderbeat, all short gastric vessels were divided all the way to the angle of His until the left bhargav was completely dissected at its entirety. I then divided the gastro-colic ligament distally to a distance of about 3-4 cm proximal to the esophagus. There were extensive congenital adhesions between the pancreas and posterior gastric wall. Those were lysed completely with the ultrasonic device. Adhesiolysis took approximately 45 min to complete. The stomach was then divided transversely with one Endo SCOTT-45 purple load, one SCOTT-45 orange load and four SCOTT-60 articulating orange loads using the AEON stapler and loads. Every effort was made that the gastric sleeve had a tubular shape and an even caliber throughout. This was quite challenging proximally because of the dilation of the proximal stomach from the gastric band. Once the sleeve resection was completed, the staple line of the gastric sleeve was reinforced with Hemoclips. The resected stomach was retrieved without difficulty from the Pawan port. A gastropexy was then performed in order to prevent postoperative GERD and partial gastric volvulus. Several interrupted 3.0 Surgidac sutures were placed between the sleeve's staple line and the previously divided greater omentum and gastro-colic ligament using the Endo-Stitch device. ?An upper endoscopy was performed. There was no narrowing at the GE junction. The scope was easily advanced all the way to the pylorus which was clearly visualized. There was no narrowing anywhere and the sleeve's caliber was even throughout. The sleeve's staple line was inspected and there was no evidence of ischemia, bleeding or dehiscence. At that point the gastroscope was withdrawn from the patient?s mouth while we were decompressing the bowel and the stomach from any remaining air. I looked into the lesser sac to see how the sleeve was situating and it was situating well. There was no bleeding from the staple line, spleen, or short gastric vessels. The Mediflex retractor was removed, and the undersurface of the liver was inspected and there was no bleeding. The patient was placed in supine position. An separate transverse incision was made where the band's port was. Using cautery the subcutaneous tissues were divided until the port was identified. This particular port is not secured with sutures but with hooks. The remaining tubing system was delivered first and then slowly the four hooks were detached from the fascia and the port with tubing system were retrieved intact. I closed the fascial defect of the 12 mm port site with a figure of eight #1 Polysorb suture. Then 30 cc of Ropivacaine plain with 10 mg of Dexamethasone were used to infiltrate the fascial closure as well as all skin incisions. A total of 7ml of Zynrelef was applied in the Pawan wound. At this point, the abdomen was deflated, all ports were removed under direct vision, and no bleeding was noted from any of the port sites. The skin incisions were irrigated with saline and were closed with 4-0 absorbable monofilament sutures. Steri-Strips and OpSites were used to cover all incisions. The patient was extubated and was transferred in stable condition to the recovery room for further care. I was present and performed all santos parts of the procedure. Mr Torre was the first line supervisor. There were no residents to assist with this case. Cesar Meraz MD, PhD, FACS Surgeon: Rocco Meraz MD Anesthesia: GETA, local and other (TAP block and Zynrelef) Was an Insurance Premium Auditor used for this Procedure?: No Insurance Premium Auditor: Pancho Torre Estimated blood loss (mL): 10 IV fluids (mL): 3,000 Pathology: other (1) gastric band and accessories, 2) band capsule, 3) GE fat pad, 4) stomach) Condition: stable Disposition: PACU
--- NOTE | 2021-11-03 08:07 | PHA.MEDREC ---
Pharmacy Consult ? Medication Reconciliation Pharmacy has completed the medication reconciliation. Reviewed med rec done by nursing
--- NOTE | 2021-11-03 13:00 | PM.DS ---
DS: Providers Provider Date of Service: 11/04/21 Date of admission: 11/03/21 06:04 Primary care physician: Quan Odonnell MD DS: Summary Hospital Course Hospital Course: ADMITTING DIAGNOSIS: morbid obesity, dm, karina, hypothyroid ? DISCHARGE DIAGNOSIS: same, s/p laparoscopic sleeve gastrectomy and removal of gastric band ? PAST SURGICAL HISTORY: ? PROCEDURE: upper endoscopy, laparoscopic sleeve gastrectomy and removal of gastric band ? DISCHARGE SUMMARY: ? History of Present Illness: ? The patient is a??56 year-old woman with a BMI of?54.8 kg/m2 and associated co-morbidities as described above. The patient had extensive work-up,lost?21.6 lbs preoperatively and was electively scheduled for laparoscopic, possible open sleeve gastrectomy and gastropexy. Risks and complications of the surgery were discussed with the patient in advance, particularly the possibility of , pulmonary embolism, anastomotic leak, bleeding, bowel injury, GERD, cardiac, renal or pulmonary complications. The patient understood all the risks and was in agreement with the surgical plan. ? Hospital Course: ? The patient underwent an uneventful laparoscopic sleeve gastrectomy with gastropexy and removal of gastric band on the day of admission. Postoperatively, the patient was transferred to the surgical floor. The patient received IV Acetaminophen and IV dilaudid for pain control. Patient was started on bariatric phase 1 diet POD #0. On postoperative day one, the patient was feeling well without nausea, vomiting, fevers, or tachycardia. The patient had some mild incisional pain and the abdomen was soft. ? On the morning of postoperative day one, the patient was continued on 1 ounce of water or ice every half hour. During the day, the patient did fairly well, having some incisional pain, but able to ambulate adequately and to tolerate liquids well. ? Since the patient is doing well, we decided that the patient was ready to be discharged. The patient was given instructions to follow-up with me next week and to call my office for any fever over 101, persistent abdominal pain, nausea, vomiting, GERD, symptoms of DVT such as calf tenderness, or leg swelling, or pulmonary embolism such as chest pain or shortness of breath. The patient was also instructed to drink 40-60 ounces of liquids per day using the 1-ounce cups. The patient had been given prescriptions for Tylenol for pain, Zofran prn for nausea, and pantoprazole and carafate previously. The patient was encouraged to ambulate and use the incentive spirometer. The patient was allowed to shower, but no baths, and encouraged to stay active at home. All of these instructions were given to the patient personally. All questions were answered and the patient understood all instructions, the instructions were also given to the patient in print. Time Spent with Patient Time attestation: Total time spent providing and/or coordinating discharge services: Discharge coordination time: Less than 30 minutes Quality: Safe Use of Opioids Does Pt have an Active Cancer Diagnosis on the Problem List?: No Quality: Stroke Does the patient have a stroke diagnosis?: No Physical Exam Vital Signs: Vital Signs: Last Vital Signs Temp 97.4 F 11/03/21 06:22 Pulse 74 11/03/21 06:22 Resp 16 11/03/21 06:22 BP 113/64 11/03/21 06:22 Pulse Ox 96 11/03/21 06:22 O2 Del Method 11/03/21 06:22 BMI result Body Mass Index 48.2 DS: Data Data Completed and Pending Pending studies at discharge: Pending at discharge 11/03/21 12:01 Surgical [PTH] Routine Labs on day of discharge: Laboratory Results - last 24 hr 11/02/21 11/03/21 14:45 06:21 POC Glucose 148 H COVID-19 ([facility]) Negative COVID-19 Clin Com See Note Discharge Plan Discharge Patient Disposition: Home, Self-Care Discharge Diagnosis: s/p laparoscopic sleeve gastrectomy and removal of gastric band Referrals: Quan Odonnell MD [Primary Care Provider] - 1 Week Discharge Medications: Continued trazodone 50 mg tablet 25 mg PO BEDTIME PRN (Reason: Insomnia) desvenlafaxine succinate 100 mg tablet extended release 24 hr 100 mg PO DAILY buspirone 30 mg tablet 30 mg PO BID bupropion HCl 150 mg tablet extended release 24 hr 450 mg PO DAILY levothyroxine [Euthyrox] 50 mcg tablet 50 mcg PO QAM pantoprazole 40 mg tablet,delayed release (DR/EC) 40 mg PO DAILY Qty: 30 2RF sucralfate 100 mg/mL suspension 10 ml PO BID Qty: 400 0RF ondansetron HCl 4 mg tablet 4 mg PO Q12H Qty: 20 0RF Held Byetta 5 mcg/dose (250 mcg/mL) 1.2 mL pen injector 5 mcg subcut BID Qty: 1.2 0RF Hold Instructions: until discussed with Dr Meraz Discontinued glyburide 1.25 mg tablet 1.25 mg PO DAILY Qty: 1 0RF cholecalciferol (vitamin D3) 25 mcg (1,000 unit) capsule 25 mcg PO DAILY Qty: 30 6RF polyethylene glycol 3350 [Miralax] 17 gram powder in packet 17 g PO DAILY Qty: 14 0RF Rx Instructions: Mix each packet with 8oz of water and do 7 packets on 11/01/21 and another 7 packets on 11/02/21 Discharge Orders: Discharge Order (Routine); Ordered 11/04/21 Ordered By: Pancho Torre Activity on Discharge: No heavy lifting Stand Alone Forms: Patient Portal Discharge page Care Plan Goals: weight loss Health Concerns: morbid obesity Plan of Treatment: No tub baths, sex or returning to work until discussed at first post op appointment. No exercise, alcohol, tobacco or illegal drug use. Continue to use incentive spirometer hourly while awake. Walk in home for 5- 10 minutes every 2 hours during the first week. Follow all instructions in the bariatric handbook and call with any questions.Discharge Instructions 1. Please call your doctor or come back to the emergency room should any new symptoms arise. 2. You will receive a courtesy call from [facility] 24-48 hours after discharge. 3. Activity: abstain from alcohol, practice limited stair climbing, no bending, no driving, no exercise, no illicit substances, no lifting, no sex, no tub bath, no work. 4. Diet: continue as discussed with Dr. Meraz. 5. Dressing Change/Wound Care: Your incision is covered by clear bandages and guaze underneath. If the area is tender, you may apply an ice pack for short intervals (no more than 20 minutes on, followed by at least 20 minutes off). Do not apply heat. Do not use creams, lotions, or topical antibiotics unless instructed to do so by your surgeon. These can cause infection or allergic reaction. 6. Call your doctor if: - Your temperature exceeds 101.5 F - You experience excessive pain or swelling - You have an unexpected reaction to medication - You have excessive bleeding - You experience continued vomiting/nausea - Your incision begins to separate - Your incision shows signs of infection such as increased redness, swelling, excessive pain, heat, or drainage (light blood or clear fluid is normal) 7. General instructions: No lifting greater than 5 lbs for the next 4 weeks[address] driving within 24 hours of taking narcotic pain medications. If you do not move your bowels in the next 2 days, please take milk of magnesia over the counter. Please follow the post op diet and do not advance your diet until you are seen in the office in about 2 weeks. Please walk around your home every hour or two to prevent blood clots from forming in your legs. You do not need to wake from sleeping to walk. Please sleep in a bed or couch to prevent kinking at the hips and knees. Please take your incentive spirometer (your lung microsoft dynamics manager architect) home with you and use it for the next few days to prevent pneumonias. You may shower, no hot tubs, baths or swimming pools. Please call the office with any questions or concerns such as increasing abdominal pain, fever, chills, shortness of breath, chest pain, leg pain or swelling, or redness or drainage from your incisions. Please stay on stage 3 diet which includes sugar free clear liquids such as ice pops and jello and broth and crystal light. Avoid all carbonation. Please drink 3 protein shakes with at least 25-30 grams of protein daily or 3 of the Celebrate 4:1 shakes which can be purchased in our office. The Celebrate shakes have all of the bariatric vitamins you need if you consume these shakes. If you are drinking other protein shakes, you will need to purchase the Celebrate multivitamins and calcium that we provide in the office (they will provide all the vitamins you need). Please make sure you are consuming at least 40-60 ounces of water in addition to your 3 protein shakes daily. Do not hesitate to contact the office with any questions at . The patient's medical history has been reviewed and they are considered low risk for post op DVT and therefore DVT prophylaxis is not considered necessary. Travel after surgery was reviewed. The patient has not disclosed any travel plans during the first 30 days after surgery and they have been advised that within the first 30 days after surgery any bus, plane, train or car travel over 2 hours in duration is contraindicated due to the possibility of developing blood clots from immobility. Any travel, needs to include periods of ambulation of 10 minutes in duration every 2 hours.? The patient was instructed to discuss any plans for travel during this period with their bariatric surgeon. Assessment: stable s/p laparoscopic sleeve gastrectomy and removal of gastric band
[2021-11-03] MEDS: Lactated Ringers 1,000 ML 125 ML IVCONT ×2 (13:48→19:26)
[2021-11-03] MEDS: Famotidine/PF 20 MG/2 ML VIAL IVPUSH ×2 (13:48→19:26)
[2021-11-03 13:58] LABS: Hematocrit 43.4 % (37.0-47.0); Hemoglobin 14.3 g/dl (12.0-16.0)
[2021-11-03 14:09] LABS: Anion Gap 17 (12-20); Blood Urea Nitrogen 11 mg/dL (9-16); Calcium 8.6 mg/dL (8.4-10.2); Carbon Dioxide 24 mmol/L (22-29); Chloride 104 mmol/L (96-108); Creatinine Clr Calc Pharmacy 84.8; Estimated Glomerular Filt Rate > 60; Glucose Random 209 mg/dL (60-115); Potassium 4.6 mmol/L (3.3-5.1); Sodium 140 mmol/L (135-145)
[2021-11-03] MEDS: busPIRone HCl 10 MG TABLET 30 MG PO (19:26)
[2021-11-03] MEDS: ondansetron HCL 4 MG/2 ML VIAL IVPUSH (22:15)
[2021-11-04 00:33] VITALS: PULSE 68; RESP 18; O2SAT 92
[2021-11-04] MEDS: Lactated Ringers 1,000 ML 125 ML IVCONT (03:50)
[2021-11-04 03:55] VITALS: BP 117/63; PULSE 67; RESP 17; TEMP 36.3; O2SAT 94
[2021-11-04] MEDS: ondansetron HCL 4 MG/2 ML VIAL IVPUSH (05:34)
[2021-11-04] MEDS: Levothyroxine Sodium 50 MCG TABLET PO (05:34)
[2021-11-04 06:20] LABS: MANUAL DIFF FLAG NO
[2021-11-04 06:25] LABS: Basophils Percent Auto 0.3 % (0-2); Eosinophils Percent Auto 0.2 % (0-4); Hematocrit 37.6 % (37.0-47.0); Hemoglobin 12.2 g/dl (12.0-16.0); Imm Gran Abs Auto 0.03 X10*3/uL (0.00-0.03); Imm Gran Pct Auto 0.3 % (0.0-0.4); Lymphocytes Absolute Auto 1.9 X10*3/uL (1.2-4.9); Mean Corpuscular HGB Conc 32.4 g/dl (31.0-35.0); Mean Corpuscular Volume 92.6 fL (80.0-98.0); Mean Platelet Volume 11.7 fL (9.4-12.3); Monocytes Absolute Auto 0.9 X10*3/uL (0.1-1.2); Monocytes Percent Auto 10.2 % (2-11); Platelet Count 151 X10*3/uL (160-400); Red Blood Count 4.06 X10*6/uL (4.20-5.50); Red Cell Distribution Width 14.3 % (11.0-16.0); White Blood Count 8.8 X10*3/uL (4.8-10.8)
--- NOTE | 2021-11-04 06:54 | HO.POSTANES ---
Post Anesthesia Evaluation Post Anesthesia Evaluation Vital Signs: Vital Signs Temp Pulse Resp BP Pulse Ox O2 Del Method 11/04/21 03:55 97.3 F 67 17 117/63 94 Room Air 11/04/21 00:33 18 11/03/21 23:27 96.8 F 70 18 117/65 95 Room Air 11/03/21 22:52 18 11/03/21 19:22 98.6 F 80 17 134/74 93 Room Air Anesthesia: General Endotracheal-GETA Mental Status: Awake Pain Control: Satisfactory Nausea/Vomiting: None Hydration: Adequate Anesthesia-Related Issues: No Anes. Related Issues
[2021-11-04 06:57] LABS: Anion Gap 15 (12-20); Blood Urea Nitrogen 9 mg/dL (9-16); Calcium 8.5 mg/dL (8.4-10.2); Carbon Dioxide 26 mmol/L (22-29); Chloride 106 mmol/L (96-108); Creatinine Clr Calc Pharmacy 97.2; Estimated Glomerular Filt Rate > 60; Glucose Random 103 mg/dL (60-115); Potassium 3.8 mmol/L (3.3-5.1); Sodium 143 mmol/L (135-145)
[2021-11-04 07:42] VITALS: BP 127/58; PULSE 80; RESP 20; TEMP 36.1; O2SAT 96
[2021-11-04] MEDS: buPROPion HCl XL 150 MG TAB.ER.24H 450 MG PO (08:52)
[2021-11-04] MEDS: Famotidine/PF 20 MG/2 ML VIAL IVPUSH (08:53)
[2021-11-04] MEDS: busPIRone HCl 10 MG TABLET 30 MG PO (08:53)
--- NOTE | 2021-11-04 09:29 | MHC.CM.PN ---
Met with patient for CM assessment. Lives @ home w/ son. Still working. No services prior to admission. Son to transport. D/C plan home no services.
== END 2021-11-04 12:35 | disposition home or self-care (01) | DRG 403 ==
LOC: HO.SSSA 13:00 → HO.S3 13:06
PROVIDERS: Physician Assistant Surgical; Admitting Provider Surgery; PCP Family Medicine; Visit Provider Surgery
PROC: 0DB64Z3 Excision of Stomach, Percutaneous Endoscopic Approach, Vertical (ICD-10-PCS; principal; 2021-11-03 07:30)
PROC: 0DB64Z3 Excision of Stomach, Percutaneous Endoscopic Approach, Vertical (ICD-10-PCS; CPT 43845; 2021-11-03 07:30)
DX: E66.01 Morbid (severe) obesity due to excess calories (principal); K74.00 Hepatic fibrosis, unspecified; Q43.3 Congenital malformations of intestinal fixation; K80.20 Calculus of gallbladder without cholecystitis without obstruction; F32.A Depression, unspecified; E03.9 Hypothyroidism, unspecified; E11.9 Type 2 diabetes mellitus without complications; M19.90 Unspecified osteoarthritis, unspecified site; Z68.42 Body mass index [BMI] 45.0-49.9, adult; K44.9 Diaphragmatic hernia without obstruction or gangrene; G47.33 Obstructive sleep apnea (adult) (pediatric); F41.9 Anxiety disorder, unspecified; Z20.822 Contact with and (suspected) exposure to COVID-19; Z88.0 Allergy status to penicillin; Z88.2 Allergy status to sulfonamides; Z79.890 Hormone replacement therapy; Z79.899 Other long term (current) drug therapy
CPT/HCPCS: 36415; 80048; 80053; 80061; 82947; 83036; 83525; 84443; 85014; 85018; 85025; 85610; 85730; 86140; 86850; 86900; 86901; 87635; 88300; 88304; 88307; 88342; 94660; A4649; C9088; J0131; J1100; J1170; J1956; J2250; J2405; J2795; J3010

== ENCOUNTER → 2021-12-29 11:00 | Outpatient (BNVA) | payer BC, SELFPAY | PROVIDERS: PCP Family Medicine; Visit Provider Counselor Mental Health | DX: F41.1 Generalized anxiety disorder (principal); Z98.84 Bariatric surgery status | CPT/HCPCS: 90791 ==

== ENCOUNTER → 2022-01-04 17:00 | Outpatient (BNVA) | payer BC, SELFPAY | PROVIDERS: PCP Family Medicine; Visit Provider Counselor Mental Health ==

== ENCOUNTER → 2022-01-18 17:00 | Outpatient (BNVA) | payer BC, SELFPAY | PROVIDERS: PCP Family Medicine; Visit Provider Counselor Mental Health | DX: F41.1 Generalized anxiety disorder (principal); Z98.84 Bariatric surgery status | CPT/HCPCS: 90853 ==

== ENCOUNTER → 2022-02-08 15:58 | Outpatient (BNVA) | payer BC, SELFPAY | PROVIDERS: PCP Family Medicine; Visit Provider Physician Assistant | DX: E66.01 Morbid (severe) obesity due to excess calories (principal); Z98.84 Bariatric surgery status | CPT/HCPCS: 90853 ==

== ENCOUNTER → 2022-02-22 17:00 | Outpatient (BNVA) | payer BC, SELFPAY | PROVIDERS: PCP Family Medicine; Visit Provider Counselor Mental Health | DX: F41.1 Generalized anxiety disorder (principal); Z98.84 Bariatric surgery status | CPT/HCPCS: 90853 ==

== ENCOUNTER → 2022-02-23 15:00 | Outpatient (BNVA) | payer BC, SELFPAY | PROVIDERS: PCP Family Medicine; Visit Provider Physician Assistant | DX: Z98.84 Bariatric surgery status (principal) ==

== ENCOUNTER → 2022-03-22 16:52 | Outpatient (BNVA) | payer BC, SELFPAY | PROVIDERS: PCP Family Medicine; Visit Provider Counselor Mental Health | DX: F41.1 Generalized anxiety disorder (principal); F32.A Depression, unspecified; Z98.84 Bariatric surgery status | CPT/HCPCS: 90853 ==

== ENCOUNTER → 2022-04-19 17:00 | Outpatient (BNVA) | payer BC, SELFPAY | PROVIDERS: PCP Family Medicine; Visit Provider Counselor Mental Health | DX: F41.1 Generalized anxiety disorder (principal); Z98.84 Bariatric surgery status | CPT/HCPCS: 90853 ==

== ENCOUNTER → 2022-04-26 15:53 | Outpatient (BNVA) | payer BC, SELFPAY | PROVIDERS: PCP Family Medicine; Visit Provider Physician Assistant | DX: F41.1 Generalized anxiety disorder (principal); E66.01 Morbid (severe) obesity due to excess calories; Z68.41 Body mass index [BMI] 40.0-44.9, adult; Z98.84 Bariatric surgery status | CPT/HCPCS: 90853 ==

== ENCOUNTER → 2022-05-31 16:52 | Outpatient (BNVA) | payer BC, SELFPAY | PROVIDERS: PCP Family Medicine; Visit Provider Counselor Mental Health | DX: F41.1 Generalized anxiety disorder (principal); Z98.84 Bariatric surgery status | CPT/HCPCS: 90853 ==

== ENCOUNTER → 2022-06-07 15:54 | Outpatient (BNVA) | payer BC, SELFPAY | PROVIDERS: PCP Family Medicine; Visit Provider Dietitian, Registered | DX: F41.1 Generalized anxiety disorder (principal); E66.01 Morbid (severe) obesity due to excess calories; Z68.41 Body mass index [BMI] 40.0-44.9, adult; Z98.84 Bariatric surgery status | CPT/HCPCS: 90853; 97803 ==

== ENCOUNTER 2023-07-09 12:36 | Outpatient (AMB) | payer BC, SELFPAY ==
--- NOTE | 2023-07-09 12:20 | A.OFFVIS_ITS ---
Intake Visit Reasons: (TV) PO LSG 11/03/21 Allergies Penicillins Allergy (Severe, Verified 04/26/22 16:00) HIVES Sulfa (Sulfonamide Antibiotics) Allergy (Severe, Verified 04/26/22 16:00) Hives HPI Comments Details: Patient is a 58-year-old female who returns to the office today in follow-up. She is status post removal of gastric band and conversion to sleeve gastrectomy on 11/03/2021. She is approximately 1 year 8 months postoperative. She last weighed herself about 6 weeks ago. Weight at that time was 205.7. She has not strictly following a meal plan or communicating with the office. Meal plan 1/2 c coffee with 3 tbsp Fairlife 9am - 4:1, 2 scoops in 8 oz Fairlife milk lunch is small salad or yogurt +/- protein bar 6pm - eating more than she should, not counting forks drinking 8 oz daily exercise plan: walking 1/2-3/4 mile 4 x per week. not tracking calories. [facility] Medical History Anxiety and depression Diabetes mellitus Hypothyroid Knee pain, bilateral Morbid obesity Sleep apnea with use of continuous positive airway pressure (CPAP) Ventral hernia Surgical History History of adjustable gastric banding History of esophagogastroduodenoscopy (EGD) Hx of bladder endoscopy Hx of cervical polypectomy Hx of colonoscopy Family History Mother Diabetes Father Dementia Sister No problems noted. Son No problems noted. Son Heart problem History of asthma Social History Are you a primary senior care assistant to a significant other at home: No Do you presently have visiting nurse or other home services: No Alcohol intake: current Alcohol intake frequency: holidays/special occasions only Patient Tobacco Use Status: Never used Tobacco service: No Current occupational status: employed Tele[employer] Telehealth Telehealth Platform: Telephone Location of provider rendering services: other Location of patient: address on file Patient Identification confirmed using: Name, : Yes Telehealth method: voice only Patient verbally consented to treatment: Yes Patient verbally consented to billing insurance company: Yes Patient informed of any privacy concerns related to visit: Yes Minutes spent on Phone/Video with Pt.: 15 Assessment & Plan Assessment & Plan (1) Morbid obesity: Code(s): E66.01 - Morbid (severe) obesity due to excess calories Category: Medical Plan: Change meal plan to include celebrate 4 in 1, 2 scoops in 8-10 oz of unsweetened almond milk or water in the morning and then again at noon. Meal in the evening we will consist of 7 forks of protein and 7 of vegetables. She has been instructed to text me her weight tomorrow and we can adjust her meal plan as needed. Encouraged to exercise daily. She does not have the financial capacity to join a gym and so she will continue to walk outside. She will track her calories with the Traxian ike, goal of 300 calories per day. Plan on return to clinic in 6 weeks.
== END 2023-07-09 12:42 | disposition home or self-care (01) ==
LOC: HO.HBS 12:36
PROVIDERS: PCP Family Medicine; Visit Provider Physician Assistant Surgical
DX: E66.01 Morbid (severe) obesity due to excess calories (principal); Z68.41 Body mass index [BMI] 40.0-44.9, adult
CPT/HCPCS: 99442

== ENCOUNTER → 2023-07-09 12:36 | Outpatient (BNVA) | payer BC, SELFPAY | PROVIDERS: PCP Family Medicine; Visit Provider Physician Assistant Surgical ==